=== PATIENT | female | born 1990 | race Caucasian/White ===

== ENCOUNTER 2016-10-11 10:23 | Outpatient (CLI) | payer MEDICAID | END 2016-10-11 10:24 | disposition home or self-care (01) | DX: D64.9 Anemia, unspecified (principal); R59.1 Generalized enlarged lymph nodes ==

== ENCOUNTER 2017-04-10 08:00 | Outpatient (CLI) | payer MEDICAID | END 2017-04-10 23:59 | disposition home or self-care (01) | LOC: LAB.R 08:00 | PROVIDERS: ATTEND Registered Nurse | DX: Z11.3 Encounter for screening for infections with a predominantly sexual mode of transmission (principal) | CPT/HCPCS: 87491; 87591 ==

== ENCOUNTER 2017-08-11 16:08 | Outpatient (CLI) | payer MEDICAID ==
[2017-08-11 17:02] LABS: HGB - HEMOGLOBIN 10.4 g/dL (12.0-16.0); MEAN CORPUSCULAR HEMOGLOBIN 21.2 pg (27.0-31.0); MEAN CORPUSCULAR HGB CONC 31.4 g/dL (32.0-36.0); MEAN CORPUSCULAR VOLUME 67.4 fL (81.0-99.0); MEAN PLATELET VOLUME 9.6 fL (7.9-10.8); RED BLOOD COUNT 4.91 10^6/uL (4.20-5.40); RED CELL DISTRIBUTION WIDTH 16.1 % (12.0-15.0); WHITE BLOOD COUNT 6.7 x10^3/uL (4.8-10.8)
== END 2017-08-11 16:09 | disposition home or self-care (01) ==
LOC: LAB 16:08
PROVIDERS: ATTEND Nurse Practitioner Obstetrics & Gynecology
DX: L02.91 Cutaneous abscess, unspecified (principal)
CPT/HCPCS: 36415

== ENCOUNTER 2017-08-18 14:53 | Outpatient (CLI) | payer MEDICAID ==
--- NOTE | 2017-08-18 16:43 | Ultrasound Report ---
ULTRASOUND OF NECK SOFT TISSUES: 08/18/2017 CLINICAL INDICATION: Followup enlarged left lymph node. TECHNIQUE: Real-time scanning was performed with auto claim representative static images obtained. FINDINGS: Ultrasound of the palpable abnormality identified by the patient was performed. The left jugulodigastric lymph node is again seen, now measuring 2.1 x 1.2 x 0.6 cm. No sonographically suspicious findings are identified in the lymph node. The thyroid demonstrates diffuse heterogeneity of echotexture. The right lobe measures 5.5 x 1.7 x 1.5 cm, and the left lobe measures 5.1 x 1.5 x 1.4 cm. The isthmus measures 6 mm. IMPRESSION: 1. NO SIGNIFICANT INTERVAL CHANGE IN PREVIOUSLY NOTED LEFT JUGULODIGASTRIC LYMPH NODE. 2. HETEROGENEOUS THYROID. CORRELATION WITH THYROID FUNCTION STUDIES IS RECOMMENDED. TD: 08/18/2017 16:42
== END 2017-08-18 14:54 | disposition home or self-care (01) ==
LOC: DI 14:53
PROVIDERS: ATTEND Nurse Practitioner Family
DX: R59.9 Enlarged lymph nodes, unspecified (principal)
CPT/HCPCS: 76536

== ENCOUNTER 2019-03-09 14:49 | Outpatient (CLI) | payer MEDICAID ==
--- NOTE | 2019-03-09 16:23 | Ultrasound Report ---
Reason: THYROID NODULES Procedure Date: 03/09/2019 Accession Number: [id number] / [id number] Procedure: US - Head or Neck Soft Tissue CPT Code: FULL RESULT: EXAM: THYROID ULTRASOUND EXAM DATE: 03/09/2019 03:59 PM. CLINICAL HISTORY: Thyroid nodules. COMPARISON: HEAD OR NECK SOFT TISSUE 08/18/2017 2:57 PM HEAD OR NECK SOFT TISSUE 08/08/2015 3:10 PM. TECHNIQUE: Real time sonographic imaging of the thyroid was performed by the reference services head. [employer] fuels sales representative static images were saved for review. FINDINGS: THYROID GLAND: Right Lobe: 5.5 x 1.4 x 1.6 cm, volume 6.4 cc. Diffusely heterogeneous echotexture, multinodular appearance without single dominant nodule. Right Lobe Nodules: No dominant nodule. Left Lobe: 4.9 x 1.2 x 1.3 cm, volume 3.9 cc. Diffusely heterogeneous echotexture, multinodular appearance without single dominant nodule. Left Lobe Nodules: No dominant nodule. Isthmus: 0.5 cm AP. Isthmic Nodules: None. LYMPH NODES: No definite adenopathy demonstrated in the central or lateral compartment. OTHER: Area in the left upper neck indicated as palpable by the patient reveals a 2.0 x 0.9 cm ovoid hypoechoic structure with central vascularity on limited color Doppler, possibly morphologically abnormal lymph node. This finding is also identified on the 2018 study and has not enlarged. IMPRESSION: Multinodular goiter with questionable adenopathy in the left level 2 cervical chain as described above. The finding is essentially unchanged compared to 2018. Management options include continued surveillance imaging or further characterization with CT of the neck with contrast to determine whether tissue sampling is warranted. Management recommendations are based on 2015 [employer] Management Guidelines for Adult Patients with Thyroid Nodules and Differentiated Thyroid Cancer. RADIA
== END 2019-03-09 14:50 | disposition home or self-care (01) ==
LOC: DI 14:49
PROVIDERS: ATTEND Family Medicine
DX: E04.2 Nontoxic multinodular goiter (principal)
CPT/HCPCS: 76536

== ENCOUNTER 2019-04-12 23:25 | Outpatient (CLI) | payer MEDICAID | END 2019-04-12 23:26 | disposition EMS.NT | LOC: EMS 23:25 | PROVIDERS: ATTEND Surgery | DX: R09.89 Other specified symptoms and signs involving the circulatory and respiratory systems (principal); R25.2 Cramp and spasm ==

== ENCOUNTER 2020-01-05 13:41 | Outpatient (CLI) | payer MEDICAID ==
[2020-01-05 20:49] LABS: HCG,QUALITATIVE BLOOD NEGATIVE
== END 2020-01-05 13:42 | disposition home or self-care (01) ==
LOC: LAB.S 13:41
PROVIDERS: ATTEND Family Medicine
DX: O46.91 Antepartum hemorrhage, unspecified, first trimester (principal)
CPT/HCPCS: 36415; 84703

== ENCOUNTER 2020-06-13 07:00 | Outpatient (CLI) | payer MEDICAID ==
[2020-06-13 10:18] LABS: MUDS CUTOFF CONCENTRATIONS CUTOFF CONC BELOW:
[2020-06-13 10:55] LABS: BILIRUBIN,URINE NEGATIVE (NEGATIVE); CLARITY,URINE CLEAR (CLEAR); GLUCOSE, URINE (UA) NEGATIVE (NEGATIVE); KETONES,URINE (UA) NEGATIVE (NEGATIVE); LEUKOCYTE ESTERASE, URINE NEGATIVE (NEGATIVE); NITRITE,URINE NEGATIVE (NEGATIVE); OCCULT BLOOD,URINE NEGATIVE (NEGATIVE); PROTEIN,URINE NEGATIVE (NEGATIVE); UROBILINOGEN,URINE 0.2 (NORMAL) E.U./dL (NORMAL)
[2020-06-13 11:11] LABS: AMPHETAMINE SCREEN,URINE NEGATIVE (NEGATIVE); BENZODIAZEPINES SCREEN, URINE NEGATIVE (NEGATIVE); COCAINE SCREEN URINE NEGATIVE (NEGATIVE); METHADONE SCREEN, URINE NEGATIVE (NEGATIVE); METHAMPHETAMINES SCREEN, URINE NEGATIVE (NEGATIVE); OPIATE SCREEN, URINE NEGATIVE (NEGATIVE); OXYCODONE SCREEN, URINE NEGATIVE (NEGATIVE); PROPOXYPHENE SCREEN, URINE NEGATIVE (NEGATIVE); TRICYCLIC ANTIDEPRESSANT,URINE NEGATIVE (NEGATIVE)
[2020-06-13 11:14] LABS: BACTERIA,URINE Few /HPF (None Seen); RBC,URINE 0-5 /HPF (0-5); SQUAMOUS EPITHELIAL CELL,UR FEW Squamous (<= Few)
== END 2020-06-13 23:59 | disposition home or self-care (01) ==
LOC: LAB.R 07:00
PROVIDERS: ATTEND Obstetrics & Gynecology
DX: Z34.90 Encounter for supervision of normal pregnancy, unspecified, unspecified trimester (principal)
CPT/HCPCS: 80306; 81001; 87086

== ENCOUNTER 2020-06-21 13:47 | Outpatient (CLI) | payer MEDICAID ==
--- NOTE | 2020-06-21 16:39 | Ultrasound Report ---
PROCEDURE: OB First Trimester INDICATIONS: SUPERVISION OF NL OUTSIDE/PRIOR DATING DATA: Last menstrual period (LMP): Not available. LMP-based estimated date of delivery (KYLER): Not available. First dating scan (date and location): This study. Estimated date of delivery (KYLER) from first dating scan: 01/28/2021. TECHNIQUE: Real-time scanning was performed of the fetus and maternal pelvic organs, with image documentation. COMPARISON: Prior 04/17/2017 pelvic ultrasound. FINDINGS: George-rump length 1.9 cm correlates with a gestational age estimate of 8 weeks 3 days, +/- 5 days. heart rate 1 71 bpm is observed. The patient has a reported endometrial septation, and the sonographic assessment shows a small adjacent subchorionic hemorrhage at the gestational sac mar gin measuring 4.0 x 1.4 x 4.0 cm. Also within the right endometrial space what appears to be a small additional potential hemorrhage measuring 2.4 x 2.8 x 4.4 cm. Quality of visualization is somewhat li mited-patient declined transvaginal study. Embryo: Viable gestation. Measurement variability in dating: +/- 4 weeks by LMP, +/- 7 days by mean sac diameter (use before 6 weeks gestation if crown-rump length not able to be measured), +/- 5 days by crown-rump length (6-12 weeks gestation). Maternal organs: Ovaries appear normal. Limited images through the kidneys demonstrate no hydroneph rosis. 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 The current examination sh ows the gestation is within the left margin of the endometrial space and there appears to be a very g estational hemorrhage at that area, but also a second separate independent smaller perigestational he morrhage is seen on the right. The exact anatomy is not clear-the patient declined transvaginal scann ing. This gestation likely represents a relatively high risk and highway research engineer specialist co nsultation appears warranted. Reviewed by: Lalo Hardwick MD on 06/21/2020 4:38 PM PST Approved by: Lalo Hardwick MD on 06/21/2020 4:38 PM PST Station ID: [id number]
== END 2020-06-21 13:48 | disposition home or self-care (01) ==
LOC: DI 13:47
PROVIDERS: ATTEND Obstetrics & Gynecology
DX: Z34.91 Encounter for supervision of normal pregnancy, unspecified, first trimester (principal)

== ENCOUNTER 2020-07-05 08:00 | Outpatient (CLI) | payer MEDICAID ==
[2020-07-06 20:09] LABS: CANDIDA GROUP DNA NEGATIVE (NEGATIVE); CANDIDA KRUSEI DNA NEGATIVE (NEGATIVE); TRICHOMONAS VAGINALIS DNA NEGATIVE (NEGATIVE)
== END 2020-07-05 23:59 | disposition home or self-care (01) ==
LOC: LAB.R 08:00
PROVIDERS: ATTEND Nurse Practitioner Obstetrics & Gynecology
DX: N89.8 Other specified noninflammatory disorders of vagina (principal)
CPT/HCPCS: 87661; 87801

== ENCOUNTER 2020-07-11 08:00 | Outpatient (CLI) | payer MEDICAID ==
[2020-07-11 21:54] LABS: TRICHOMONAS VAGINALIS DNA NEGATIVE (NEGATIVE)
== END 2020-07-11 23:59 | disposition home or self-care (01) ==
LOC: LAB.R 08:00
PROVIDERS: ATTEND Obstetrics & Gynecology
DX: Z34.90 Encounter for supervision of normal pregnancy, unspecified, unspecified trimester (principal)
CPT/HCPCS: 87491; 87591; 87661

== ENCOUNTER 2020-07-11 11:52 | Outpatient (CLI) | payer MEDICAID ==
[2020-07-11 12:25] LABS: BASOPHILS % (AUTO) 0.5 %; EOSINOPHILS # (AUTO) 0.1 10^3/uL (0.0-0.7); EOSINOPHILS % (AUTO) 0.8 %; LYMPHOCYTES # (AUTO) 1.6 10^3/uL (1.5-3.5); LYMPHOCYTES % (AUTO) 19.6 %; MEAN CORPUSCULAR HEMOGLOBIN 22.2 pg (27.0-31.0); MEAN CORPUSCULAR HGB CONC 32.1 g/dL (32.0-36.0); MEAN CORPUSCULAR VOLUME 69.2 fL (81.0-99.0); MONOCYTES # (AUTO) 0.4 10^3/uL (0.0-1.0); MONOCYTES % (AUTO) 5.1 %; NEUTROPHILS # (AUTO) 6.1 10^3/uL (1.5-6.6); NEUTROPHILS % (AUTO) 73.6 %; PLT - PLATELET COUNT 259 10^3/uL (130-450); RED BLOOD COUNT 4.51 10^6/uL (4.20-5.40); RED CELL DISTRIBUTION WIDTH 15.9 % (12.0-15.0); WHITE BLOOD COUNT 8.3 x10^3/uL (4.8-10.8)
[2020-07-12 12:22] LABS: HEPATITIS C ANTIBODY NON-REACTIVE (NON-REACTIVE)
[2020-07-12 12:23] LABS: HEPATITIS B SURFACE ANTIGEN NON-REACTIVE (NON-REACTIVE)
[2020-07-12 13:42] LABS: HIV AG/AB 4TH GEN NON-REACTIVE (NON-REACTIVE)
== END 2020-07-11 11:53 | disposition home or self-care (01) ==
LOC: LAB 11:52
PROVIDERS: ATTEND Obstetrics & Gynecology
DX: Z36.89 Encounter for other specified antenatal screening (principal)
CPT/HCPCS: 36415; 81599; 85025; 86592; 86762; 86787; 86803; 86850; 86900; 86901; 87340; 87389

== ENCOUNTER 2020-09-12 12:19 | Outpatient (CLI) | payer MEDICAID ==
--- NOTE | 2020-09-12 17:57 | Ultrasound Report ---
PROCEDURE: OB Detailed Eval INDICATIONS: ANTENATEL SCAN OUTSIDE/PRIOR DATING DATA: First dating scan (date and location): 06/21/2020. Estimated date of delivery (KYLER) from first dating scan: 01/28/2021. TECHNIQUE: Real-time scanning was performed of the fetus, with image documentation and biometric measurements. Endovaginal scanning: Not performed COMPARISON: 06/21/2020 FINDINGS: General: A single living intrauterine gestation is present. Presentation: Transverse, head to the right Placenta: Placental position is anterior, without previa. Amniotic fluid index: 14.6 cm, 54th percentile for gestational age. Largest vertical pocket measur ed 4.4 cm. heart rate: 139 beats per minute. Maternal cervical canal: 5.0 cm long; normal length is 2.5 cm or more. biometrics: Biparietal diameter: 4.8 cm, correlating with 20 weeks and 4 days Head circumference: 18.0 cm, correlating with 20 weeks and 3 days Abdominal circumference: 14.5 cm, correlating with 19 weeks and 6 days Femur length: 3.2 cm, correlating with 19 weeks and 6 days Estimated gestational age from initial scan: 20 weeks and 2 days. Composite gestational age from present scan: 20 weeks and 1 day Estimated weight and percentile: 321 [address] which [address] the fetus within the 26th percentile for g estational age Measurement variability in biometric dating: +/- 10 days from 12-20 weeks gestation, +/- 2 weeks from 20-30 weeks gestation, +/- 3 weeks at 30 weeks gestation or later. Anatomic survey: Slightly limited secondary to transverse lie. Neuro: Ventricles are normal at less than 10 mm. Cisterna magna is normal at 3-11 mm. Cerebellum i s normal in size and morphology. Nuchal skin fold: Normal at less than 6 mm between 14 and 20 weeks gestational age. Face: Nose and lips, facial profile are normal. Spine: No evidence for spina bifida. Slightly limited evaluation of the spine on the sagittal plane. Heart: 4-chambered heart is present, with normal ventricular outflow tracts. Diaphragm: Diaphragm is intact. Stomach: Left-sided stomach is present. Kidneys: No hydronephrosis. Normal is less than 5 mm in 2nd trimester, less than 7 mm in 3rd trimester. Cord: 3 vessel cord has orthotopic insertion. Nuchal cord visualized throughout the study. No uteri ne septation seen. Bladder: Normal in size. Extremities: All 4 extremities are visualized. IMPRESSION: 1. Single living intrauterine gestation with estimated sonographic gestational age of approximately 2 0 weeks and 1 day. Expected interval growth has occurred. 2. Estimated weight of approximately 321 [address] which [address] the fetus within the 26th percentile fo r gestational age. 3. Incidental note of nuchal cord. 4. Mildly limited evaluation of the spine in the sagittal plane. No gross abnormality seen. Con maintenance mechanic elevators repeat imaging. Reviewed by: Mj Barker MD on 09/12/2020 5:56 PM PDT Approved by: Mj Barker MD on 09/12/2020 5:56 PM PDT Station ID: [id number]
== END 2020-09-12 12:20 | disposition home or self-care (01) ==
LOC: DI 12:19
PROVIDERS: ATTEND Obstetrics & Gynecology
DX: Z34.90 Encounter for supervision of normal pregnancy, unspecified, unspecified trimester (principal)

== ENCOUNTER 2020-10-04 14:15 | Outpatient (CLI) | payer MEDICAID ==
--- NOTE | 2020-10-04 16:43 | Ultrasound Report ---
PROCEDURE: OB F/U or Repeat INDICATIONS: SCREENING OUTSIDE/PRIOR DATING DATA: Last menstrual period (LMP): Unknown. LMP-based estimated date of delivery (KYLER): Unknown. First dating scan (date and location): 06/21/2020. Estimated date of delivery (KYLER) from first dating scan: 01/28/2021. TECHNIQUE: Real-time scanning was performed of the fetus, with image documentation and biometric measurements. Endovaginal scanning: Not performed COMPARISON: None. FINDINGS: General: A single living intrauterine gestation is present. Presentation: Vertex Placenta: Placental position is anterior, without previa. Amniotic fluid index: 14.3 cm, 45th percentile for gestational age. Largest pocket measures 4.3 cm. heart rate: 140 beats per minute. Maternal cervical canal: 3.7 cm long; normal length is 2.5 cm or more. Other: Spine is within normal limits IMPRESSION: Single living intrauterine fetus in vertex presentation. Normal appearance of the spine. Normal SAMI Reviewed by: Sven Cox MD on 10/04/2020 4:42 PM PDT Approved by: Sven Cox MD on 10/04/2020 4:42 PM PDT Station ID: [id number]
== END 2020-10-04 14:16 | disposition home or self-care (01) ==
LOC: DI 14:15
PROVIDERS: ATTEND Nurse Practitioner Obstetrics & Gynecology
DX: Z36.89 Encounter for other specified antenatal screening (principal)

== ENCOUNTER 2020-11-09 11:36 | Outpatient (CLI) | payer MEDICAID ==
[2020-11-09 12:45] LABS: HCT - HEMATOCRIT 28.2 % (37.0-47.0); MEAN CORPUSCULAR HEMOGLOBIN 22.8 pg (27.0-31.0); MEAN CORPUSCULAR HGB CONC 31.9 g/dL (32.0-36.0); MEAN CORPUSCULAR VOLUME 71.4 fL (81.0-99.0); MEAN PLATELET VOLUME 9.7 fL (7.9-10.8); RED BLOOD COUNT 3.95 10^6/uL (4.20-5.40); RED CELL DISTRIBUTION WIDTH 16.3 % (12.0-15.0); WHITE BLOOD COUNT 9.4 x10^3/uL (4.8-10.8)
[2020-11-09 13:09] LABS: % IRON SATURATION 26 % (20-50); GLUCOSE,1H PP 50GM DOSE 124; IRON 119 ug/dL (28-170); TOTAL IRON BINDING CAPACITY 462 ug/dL (250-450); TRANSFERRIN 330 mg/dL (192-382)
== END 2020-11-09 11:37 | disposition home or self-care (01) ==
LOC: LAB 11:36
PROVIDERS: ATTEND Obstetrics & Gynecology
DX: O99.019 Anemia complicating pregnancy, unspecified trimester (principal); D56.3 Thalassemia minor; D50.9 Iron deficiency anemia, unspecified
CPT/HCPCS: 36415; 82728; 82950; 83540; 84466; 85027

== ENCOUNTER 2022-10-17 08:00 | Outpatient (CLI) | payer MEDICAID ==
[2022-10-17 15:15] LABS: BILIRUBIN,URINE NEGATIVE (NEGATIVE); GLUCOSE, URINE (UA) NEGATIVE (NEGATIVE); KETONES,URINE (UA) NEGATIVE (NEGATIVE); LEUKOCYTE ESTERASE, URINE NEGATIVE (NEGATIVE); NITRITE,URINE NEGATIVE (NEGATIVE); OCCULT BLOOD,URINE NEGATIVE (NEGATIVE); PROTEIN,URINE NEGATIVE (NEGATIVE); UROBILINOGEN,URINE 0.2 (NORMAL) E.U./dL (NORMAL)
[2022-10-17 15:19] LABS: CLARITY,URINE CLEAR (CLEAR)
[2022-10-17 16:07] LABS: BACTERIA,URINE Few /HPF (None Seen); RBC,URINE 0-5 /HPF (0-5); SQUAMOUS EPITHELIAL CELL,UR RARE Squamous (<= Few); WBC,URINE 0-3 /HPF (0-5)
== END 2022-10-17 23:59 | disposition home or self-care (01) ==
LOC: LAB.WC 08:00
PROVIDERS: ATTEND Nurse Practitioner
DX: Z34.90 Encounter for supervision of normal pregnancy, unspecified, unspecified trimester (principal); Z36.89 Encounter for other specified antenatal screening
CPT/HCPCS: 81001; 87086

== ENCOUNTER 2022-11-04 16:35 | Outpatient (CLI) | payer MEDICAID ==
--- NOTE | 2022-11-04 18:03 | Ultrasound Report ---
PROCEDURE: OB First Trimester INDICATIONS: SUPERVISION OF OUTSIDE/PRIOR DATING DATA: Last menstrual period (LMP): 08/24/2022. LMP-based estimated date of delivery (KYLER): 05/31/2023. First dating scan (date and location): Today's exam. Estimated date of delivery (KYLER) from first dating scan: 06/12/2023. The below data below was generated using the ultrasound KYLER of 06/12/2023 TECHNIQUE: Real-time scanning was performed of the fetus and maternal pelvic organs, with image documentation. COMPARISON: None FINDINGS: Single living intrauterine . There is a gestational fluid collection measuring 4 x 1.7 x 2.5 cm. Embryo: Measures 2.0 cm, corresponding to 8 weeks 4 days. Heart rate: 178 bpm. Measurement variability in dating: +/- 4 weeks by LMP, +/- 7 days by mean sac diameter (use before 6 weeks gestation if crown-rump length not able to be measured), +/- 5 days by crown-rump length (6-12 weeks gestation). Maternal organs: Ovaries demonstrate bilateral cysts. IMPRESSION: Single living intrauterine at 8 weeks 4 days, KYLER of 06/12/2023. Moderate size. Just adnexal fluid collection measuring 4 x 1.7 x 2.5 cm. Borderline tachycardia. Reviewed by: Efren Rubi on 11/04/2022 5:01 PM NATASHA Approved by: Efren Rubi on 11/04/2022 5:01 PM NATASHA Station ID: [id number]
[2022-11-05 02:07] LABS: HCV AB Non Reactive (Non Reactive)
[2022-11-05 05:12] LABS: HIV SCREEN 4TH GENERATION Non Reactive (Non Reactive)
== END 2022-11-04 16:36 | disposition home or self-care (01) ==
LOC: DI 16:35
PROVIDERS: ATTEND Nurse Practitioner
DX: O99.011 Anemia complicating pregnancy, first trimester (principal); Z3A.08 8 weeks gestation of pregnancy; Z36.89 Encounter for other specified antenatal screening
CPT/HCPCS: 36415; 82728; 86787; 86803; 87389

== ENCOUNTER 2022-12-04 08:00 | Outpatient (CLI) | payer MEDICAID ==
[2022-12-04 21:35] LABS: CHLAMYDIA TRACHOMATIS DNA NEGATIVE (NEGATIVE); NEISSERIA GONORRHOEAE DNA NEGATIVE (NEGATIVE); TRICHOMONAS VAGINALIS DNA NEGATIVE (NEGATIVE)
== END 2022-12-04 23:59 | disposition home or self-care (01) ==
LOC: LAB.WC 08:00
PROVIDERS: ATTEND Obstetrics & Gynecology
DX: Z11.3 Encounter for screening for infections with a predominantly sexual mode of transmission (principal)
CPT/HCPCS: 87491; 87591; 87661

== ENCOUNTER 2022-12-06 10:03 | Outpatient (CLI) | payer MEDICAID ==
[2022-12-06 10:23] LABS: BASOPHILS % (AUTO) 0.5 %; EOSINOPHILS # (AUTO) 0.1 10^3/uL (0.0-0.7); EOSINOPHILS % (AUTO) 0.8 %; HCT - HEMATOCRIT 32.3 % (37.0-47.0); HGB - HEMOGLOBIN 10.1 g/dL (12.0-16.0); LYMPHOCYTES # (AUTO) 1.6 10^3/uL (1.5-3.5); LYMPHOCYTES % (AUTO) 20.4 %; MEAN CORPUSCULAR HEMOGLOBIN 21.8 pg (27.0-31.0); MEAN CORPUSCULAR HGB CONC 31.3 g/dL (32.0-36.0); MEAN CORPUSCULAR VOLUME 69.6 fL (81.0-99.0); MONOCYTES # (AUTO) 0.4 10^3/uL (0.0-1.0); NEUTROPHILS # (AUTO) 5.8 10^3/uL (1.5-6.6); NEUTROPHILS % (AUTO) 72.9 %; PLT - PLATELET COUNT 175 10^3/uL (130-450); RED BLOOD COUNT 4.64 10^6/uL (4.20-5.40); RED CELL DISTRIBUTION WIDTH 17.4 % (12.0-15.0)
[2022-12-06 10:24] LABS: SLIDE REVIEW? Indicated
[2022-12-06 10:40] LABS: PLATELET ESTIMATE, MANUAL NORMAL (130-450,000) (NORMAL); PLATELET MORPHOLOGY NORMAL APPEARANCE (NORMAL)
[2022-12-07 02:08] LABS: HBsAG SCREEN Negative (Negative)
[2022-12-07 06:09] LABS: RPR Non Reactive (Non Reactive)
== END 2022-12-06 10:04 | disposition home or self-care (01) ==
LOC: LAB 10:03
PROVIDERS: ATTEND Nurse Practitioner
DX: Z34.90 Encounter for supervision of normal pregnancy, unspecified, unspecified trimester (principal); Z36.89 Encounter for other specified antenatal screening
CPT/HCPCS: 36415; 85025; 86592; 86762; 86850; 86900; 86901; 87340

== ENCOUNTER 2023-01-29 14:28 | Outpatient (CLI) | payer MEDICAID ==
[2023-01-31 21:07] LABS: AFP MOM 0.53 (.); GEST. AGE ON COLLECTION DATE 20.9 weeks (.); GESTAT. AGE METHOD Ultrasound (.); INSULIN DEP DIABETES No (.); MATERNAL AGE AT EDD 34.3 yr (.); MULTIPLE GESTATION No (.); OPEN SPINA BIFIDA RISK 1 IN 10000 (.); RACE Caucasian (.); RESULTS Report (.); TEST RESULTS *Screen Negative* (.); WEIGHT 139 lbs (.)
== END 2023-01-29 14:29 | disposition home or self-care (01) ==
LOC: LAB 14:28
PROVIDERS: ATTEND Obstetrics & Gynecology
DX: O09.91 Supervision of high risk pregnancy, unspecified, first trimester (principal); O34.211 Maternal care for low transverse scar from previous cesarean delivery; O99.011 Anemia complicating pregnancy, first trimester; D64.9 Anemia, unspecified; D56.3 Thalassemia minor
CPT/HCPCS: 36415; 82105; 82728

== ENCOUNTER 2023-04-23 12:22 | Outpatient (CLI) | payer MEDICAID ==
--- NOTE | 2023-04-23 18:54 | Ultrasound Report ---
PROCEDURE: OB F/U or Repeat INDICATIONS: SEPTATE UTERUS OUTSIDE/PRIOR DATING DATA: Last menstrual period (LMP): 08/24/2022. LMP-based estimated date of delivery (KYLER): 05/31/2023. First dating scan (date and location): 11/04/2022. Estimated date of delivery (KYLER) from first dating scan: 06/12/2023. The below data below was generated using the working KYLER of 06/04/2023 TECHNIQUE: Ultrasound of the gravid uterus was performed and recorded. COMPARISON: 01/21/2023 FINDINGS: General: A single live intrauterine gestation is present. Presentation: Breech Placenta: Placental position is anterior without previa. Amniotic fluid index: 13.3 cm, 39 percentile for gestational age. heart rate: 127 beats per minute. Maternal cervical canal: 5.2 cm long; normal length is 2.5 cm or more. biometrics: Biparietal diameter: 8.3 cm, 33 week 2 day, 58 percentile Head circumference: 30.7 cm, 34 week 1 day , 48th percentile Abdominal circumference: 29.4 cm, 33 week 3 day, 66 percentile Femur length: 6.4 cm, 33 week 0 day, 43 percentile Estimated gestational age by working dates: 32 week 6 day Composite gestational age by current ultrasound: 33 week 3 day Estimated weight and percentile: 2179 g, 57th percentile Measurement variability in biometric dating: +/- 10 days from 12-20 weeks gestation, +/- 2 weeks from 20-30 weeks gestation, +/- 3 weeks at 30 weeks gestation or more. Other: Not applicable. IMPRESSION: Single live intrauterine consistent with 33 week 3 day gestation by current ultrasound Reviewed by: River Smith MD on 04/23/2023 5:53 PM AK Approved by: River Smith MD on 04/23/2023 5:53 PM AK Station ID: [id number]
== END 2023-04-23 12:23 | disposition home or self-care (01) ==
LOC: DI 12:22
PROVIDERS: ATTEND Obstetrics & Gynecology
DX: Q51.28 Other and unspecified doubling of uterus (principal); O34.03 Maternal care for unspecified congenital malformation of uterus, third trimester; Z3A.33 33 weeks gestation of pregnancy

== ENCOUNTER 2023-05-26 14:28 | Outpatient (CLI) | payer MEDICAID ==
[2023-05-26 14:54] LABS: HCT - HEMATOCRIT 30.2 % (37.0-47.0); HGB - HEMOGLOBIN 9.4 g/dL (12.0-16.0); MEAN CORPUSCULAR HEMOGLOBIN 22.1 pg (27.0-31.0); MEAN CORPUSCULAR HGB CONC 31.1 g/dL (32.0-36.0); MEAN CORPUSCULAR VOLUME 70.9 fL (81.0-99.0); PLT - PLATELET COUNT 163 10^3/uL (130-450); RED BLOOD COUNT 4.26 10^6/uL (4.20-5.40); RED CELL DISTRIBUTION WIDTH 16.4 % (12.0-15.0); WHITE BLOOD COUNT 10.4 x10^3/uL (4.8-10.8)
[2023-05-26 17:33] LABS: ESTIMATED AVERAGE GLUCOSE 88 mg/dL (70-100); HEMOGLOBIN A1c% 4.7 % (4.27-6.07)
== END 2023-05-26 14:29 | disposition home or self-care (01) ==
LOC: LAB 14:28
PROVIDERS: ATTEND Registered Nurse Emergency
DX: O09.893 Supervision of other high risk pregnancies, third trimester (principal); Z13.1 Encounter for screening for diabetes mellitus
CPT/HCPCS: 36415; 83036; 85027; 86780

== ENCOUNTER 2024-01-30 10:41 | Outpatient (CLI) | payer MEDICAID ==
[2024-01-30 10:52] LABS: BASOPHILS % (AUTO) 0.4 %; EOSINOPHILS # (AUTO) 0.3 10^3/uL (0.0-0.7); EOSINOPHILS % (AUTO) 3.5 %; HCT - HEMATOCRIT 28.1 % (37.0-47.0); HGB - HEMOGLOBIN 8.6 g/dL (12.0-16.0); LYMPHOCYTES # (AUTO) 1.2 10^3/uL (1.5-3.5); LYMPHOCYTES % (AUTO) 15.3 %; MEAN CORPUSCULAR HEMOGLOBIN 19.8 pg (27.0-31.0); MEAN CORPUSCULAR HGB CONC 30.6 g/dL (32.0-36.0); MEAN CORPUSCULAR VOLUME 64.6 fL (81.0-99.0); MEAN PLATELET VOLUME 8.4 fL (7.9-10.8); MONOCYTES # (AUTO) 0.4 10^3/uL (0.0-1.0); MONOCYTES % (AUTO) 4.9 %; NEUTROPHILS # (AUTO) 5.9 10^3/uL (1.5-6.6); NEUTROPHILS % (AUTO) 75.4 %; PLT - PLATELET COUNT 281 10^3/uL (130-450); RED BLOOD COUNT 4.35 10^6/uL (4.20-5.40); WHITE BLOOD COUNT 7.8 x10^3/uL (4.8-10.8)
== END 2024-01-30 10:42 | disposition home or self-care (01) ==
LOC: LAB 10:41
PROVIDERS: ATTEND Nurse Practitioner
DX: D64.9 Anemia, unspecified (principal); R59.1 Generalized enlarged lymph nodes
CPT/HCPCS: 36415; 85025; 86308

== ENCOUNTER 2024-02-03 20:55 | Outpatient (CLI) | payer MEDICAID ==
--- NOTE | 2024-02-04 09:34 | Ultrasound Report ---
PROCEDURE: Soft Tissue Head or Neck INDICATIONS: LYMPHADENOPATHY TECHNIQUE: Real-time scanning was performed of the neck, with image documentation. COMPARISON: None FINDINGS: Borderline enlarged bilateral cervical chain lymph nodes, left greater than right. Largest on the lef t measures 2.7 x 1.1 cm. Largest on the right measures 1.7 x 0.7 cm Heterogeneous thyroid echogenicity. IMPRESSION: Enlarged bilateral cervical chain lymph nodes. These could be reactive or indicate a lymphoproliferat israel disorder. Consider short-term follow-up (2-3 months) over tissue sampling. Heterogeneous thyroid echogenicity, most consistent with thyroiditis. Reviewed by: Efren Rubi MD on 02/04/2024 9:32 AM PDT Approved by: Efren Rubi MD on 02/04/2024 9:32 AM PDT Station ID: [id number]
== END 2024-02-03 20:56 | disposition home or self-care (01) ==
LOC: DI 20:55
PROVIDERS: ATTEND Nurse Practitioner
DX: R59.1 Generalized enlarged lymph nodes (principal)

== ENCOUNTER 2024-02-04 16:09 | Outpatient (CLI) | payer MEDICAID ==
[2024-02-04 16:42] LABS: BILIRUBIN,URINE SMALL (NEGATIVE); GLUCOSE, URINE (UA) NEGATIVE (NEGATIVE); KETONES,URINE (UA) 40 mg/dL (NEGATIVE); LEUKOCYTE ESTERASE, URINE NEGATIVE (NEGATIVE); NITRITE,URINE NEGATIVE (NEGATIVE); OCCULT BLOOD,URINE NEGATIVE (NEGATIVE); PH,URINE 6.5 PH (5.0-7.5); PROTEIN,URINE 30 mg/dL (NEGATIVE); UROBILINOGEN,URINE 2 E.U./dL (NORMAL)
[2024-02-04 16:46] LABS: CLARITY,URINE CLOUDY (CLEAR)
[2024-02-04 17:17] LABS: BACTERIA,URINE Moderate /HPF (None Seen); RBC,URINE 0-5 /HPF (0-5); SQUAMOUS EPITHELIAL CELL,UR MANY Squamous (<= Few); WBC,URINE 0-3 /HPF (0-5)
== END 2024-02-04 16:10 | disposition home or self-care (01) ==
LOC: LAB 16:09
PROVIDERS: ATTEND Nurse Practitioner
DX: D64.9 Anemia, unspecified (principal)
CPT/HCPCS: 81001; 81599; 82274

== ENCOUNTER 2024-02-05 22:11 | Outpatient (CLI) | payer MEDICAID | END 2024-02-05 22:12 | disposition EMS.NT | LOC: EMS 22:11 | DX: R00.0 Tachycardia, unspecified (principal); R50.9 Fever, unspecified; F41.9 Anxiety disorder, unspecified ==

== ENCOUNTER 2024-02-07 08:00 | Outpatient (CLI) | payer MEDICAID | END 2024-02-07 23:59 | disposition home or self-care (01) | LOC: LAB.N 08:00 | PROVIDERS: ATTEND Registered Nurse | DX: R07.0 Pain in throat (principal) | CPT/HCPCS: 87070 ==

== ENCOUNTER 2024-02-08 11:50 | Outpatient (CLI) | payer MEDICAID ==
[2024-02-08 13:01] LABS: CRP - C-REACTIVE PROTEIN 11.6 mg/dL (<0.5)
[2024-02-08 13:22] LABS: RHEUMATOID FACTOR NEGATIVE (Negative)
[2024-02-08 14:06] LABS: FERRITIN > 7500.0 ng/mL (11.0-306.8)
[2024-02-09 13:10] LABS: EBV AB VCA IGM <36.0 U/mL (0.0-35.9); EBV NUCLEAR ANTIGEN AB IGG 34.9 U/mL (0.0-17.9); VITAMIN D 25-HYDROXY 22.9 ng/mL (30.0-100.0)
== END 2024-02-08 11:51 | disposition home or self-care (01) ==
LOC: LAB 11:50
PROVIDERS: ATTEND Nurse Practitioner
DX: R50.9 Fever, unspecified (principal); F43.9 Reaction to severe stress, unspecified; F41.9 Anxiety disorder, unspecified; R07.0 Pain in throat; L30.9 Dermatitis, unspecified; L27.0 Generalized skin eruption due to drugs and medicaments taken internally; T36.0X5A Adverse effect of penicillins, initial encounter; R59.1 Generalized enlarged lymph nodes; M79.10 Myalgia, unspecified site; M25.50 Pain in unspecified joint; R53.83 Other fatigue
CPT/HCPCS: 36415; 82306; 82607; 82728; 82746; 85651; 86140; 86430; 86618; 86664; 86665

== ENCOUNTER 2024-02-13 19:22 | Outpatient (CLI) | payer MEDICAID ==
--- NOTE | 2024-02-16 12:40 | Ultrasound Report ---
PROCEDURE: Pelvic Complete INDICATIONS: ANEMIA TECHNIQUE: Real-time transabdominal scanning was performed of the pelvic organs, with image documentation. COMPARISON: Pelvic ultrasound 04/17/2017 FINDINGS: Uterus: Uterus is anteverted and normal in size at 8.1 x 2.5 x 5.5 cm. The uterus is bicornuate The myometrium is homogeneous. The endometrium in the right horn measures 5 mm and the left horn measur es 7 mm in combined thickness. Ovaries: The right ovary measures 2.9 x 2.2 x 2.8 cm, with a calculated ovarian volume of 9 cc. The left ovary measures 0.5 x 1.8 x 3.0 cm, with a calculated ovarian volume of 6.9 cc. The ovaries hav e a normal sonographic appearance. Less than 12 follicles can be seen in each ovary. No adnexal mas ses are seen. No cystic lesions measuring greater than 3 cm. Other: No free pelvic fluid. IMPRESSION: Bicornuate uterus. Reviewed by: Sherley Chen MD, PhD on 02/16/2024 12:39 PM PDT Approved by: Sherley Chen MD, PhD on 02/16/2024 12:39 PM PDT Station ID: [id number]
== END 2024-02-13 19:23 | disposition home or self-care (01) ==
LOC: DI 19:22
PROVIDERS: ATTEND Nurse Practitioner
DX: D64.9 Anemia, unspecified (principal); Q51.3 Bicornate uterus

== ENCOUNTER 2024-02-17 08:00 | Outpatient (CLI) | payer MEDICAID ==
--- NOTE | 2024-02-17 16:34 | XRAY Report ---
PROCEDURE: Shoulder 2+V LT INDICATIONS: ARTHRALGIA TECHNIQUE: 3 views of the shoulder were acquired. COMPARISON: None. FINDINGS: Bones: No acute displaced fracture or dislocation. Soft tissues: No suspicious calcifications IMPRESSION: No acute radiographic abnormality. If there is high concern for further derangement, consider MRI donna luation. Reviewed by: Con Porter MD on 02/17/2024 4:33 PM PDT Approved by: Con Porter MD on 02/17/2024 4:33 PM PDT Station ID: [id number]
== END 2024-02-17 23:59 | disposition home or self-care (01) ==
LOC: DI.S 08:00
PROVIDERS: ATTEND Registered Nurse
DX: M25.512 Pain in left shoulder (principal)

== ENCOUNTER 2024-02-18 21:46 | Outpatient (CLI) | payer MEDICAID ==
--- NOTE | 2024-02-23 20:44 | Ultrasound Report ---
PROCEDURE: Duplex Ext Veins Right INDICATIONS: R FOREARM SWELLING TECHNIQUE: Real-time imaging, as well as color and pulse Doppler interrogation, were performed of the right uppe r extremity deep veins from the subclavian vein to the antecubital fossa. COMPARISON: None. FINDINGS: The right internal jugular, axillary and brachial veins are normally compressible, and niki e of intraluminal thrombus. Color and pulse Doppler demonstrate normal phasic intraluminal flow invo lving the right internal jugular, subclavian, axillary and brachial veins. There is normal augmentat ion response to distal compression maneuver. The basilic and cephalic veins demonstrate normal compressibility, color and pulse Doppler with celena l phasicity and free of intraluminal thrombus. Incidental note is made of a trace amount of fluid within the right shoulder joint space. IMPRESSION: No evidence of deep venous thrombosis involving the visualized right upper extremity. Reviewed by: Russ Vasquez MD on 02/23/2024 8:27 AM PDT Approved by: Russ Vasquez MD on 02/23/2024 8:27 AM PDT Station ID: [id number]
== END 2024-02-18 21:47 | disposition home or self-care (01) ==
LOC: DI 21:46
PROVIDERS: ATTEND Registered Nurse
DX: R22.31 Localized swelling, mass and lump, right upper limb (principal); R50.9 Fever, unspecified

== ENCOUNTER 2024-02-24 11:13 | Emergency (ER) | payer MEDICAID ==
[2024-02-24 11:31] VITALS: O2SAT 99
--- NOTE | 2024-02-24 12:31 | ED Physician Documentation ---
History of Present Illness - Stated complaint Stated Complaint: BULDGE ON BROW - Chief complaint Chief Complaint: General - History obtained from History obtained from: Patient - Additonal information Additional information: She had a cyst removed from her forehead at [facility] on February 12 and now has some purulent drainage from it. Of note, she has a fever, asked her when she developed the fever and she says it started mid December and has been intermittent since. She has a family member who is a doctor who thinks she has Lyme disease despite being reportedly seronegative for same. PD PAST MEDICAL HISTORY - Past Medical History Psych: Anxiety - Past Surgical History Past Surgical History: Yes - Present Medications Home Medications: Ambulatory Orders Medication Instructions Recorded Confirmed Doxycycline [Vibramycin] 100 mg PO BID #20 tablet 02/24/24 - Allergies Allergies/Adverse Reactions: Allergies Allergy/AdvReac Type Severity Reaction Status Date / Time amoxicillin Allergy Unknown Verified 02/24/24 11:22 - Social History Does the pt smoke?: Yes Smoking Status: Current every day smoker Does the pt drink ETOH?: Yes Does the pt have substance abuse?: Yes - POLST Patient has POLST: No PD ED PE NORMAL - Vitals Vital signs reviewed: Yes - General General: Alert and oriented X 3, No acute distress - HEENT HEENT: Other (There is a small sebaceous cyst between the eyebrows that does have some purulent drainage but really no surrounding cellulitis.) - Neck Neck: Supple, no meningeal sign, No bony TTP - Derm Derm: No rash - Neuro Neuro: Alert and oriented X 3, Normal speech Results - Vitals Vitals: Vital Signs - 24 hr 02/24/24 11:23 Temperature 38.3 C H Heart Rate 129 H Respiratory 18 Rate Blood Pressure 119/70 O2 Saturation 99 Oxygen O2 Source Room air Procedures - Abscess I&D (location) forehead Preparation: Lidocaine 1%, With epi Incision: Incised with scalpel, Purulent drainage, Loculations broken, Culture obtained Other: Pt tolerated well, Dressing applied PD Medical Decision Making - ED course ED course: She has a tiny infected cyst on the forehead, was incised and drained. She is febrile, but suspect that is not the source of her fever, she has had ongoing fevers since before the cyst was even an issue. Given the length of time it sounds like an autoimmune disease and looking back in the chart it does look like her primary care nurse practitioner has started the process of working her up for rheumatologic disease. Patient thinks she has Lyme despite negative serologic testing for that so would seem reasonable to use doxycycline for the presumptive treatment of her cyst abscess. Departure - Departure Disposition: 01 Home, Self Care Clinical Impression: Sebaceous cyst Condition: Good Record reviewed to determine appropriate education?: Yes Instructions: ED Cyst Sebaceous Infec IandD Prescriptions: Doxycycline [Vibramycin] 100 mg PO BID #20 tablet Comments: I sent your prescription electronically to the [facility] in [place]. Your ultrasound from yesterday was negative. Given the ongoing fevers, we are treating you with doxycycline for the infection but also per your request to treat for seronegative Lyme disease. Could also be an autoimmune issue and follow-up with your primary care physician for further evaluation and treatment of that. We are performing a wound culture, the results should be done in 48-72 hours. If antibiotic change is necessary we will call you. Return if worse in the meantime, especially if you develop increased pain, cannot keep down the medication. Otherwise follow-up with your physician in approximately 2-3 days. Forms: PCP List
[2024-02-24 13:09] VITALS: BP 115/68
== END 2024-02-24 12:53 | disposition home or self-care (01) ==
LOC: ED 11:13
DX: L72.3 Sebaceous cyst (principal); R50.9 Fever, unspecified; F17.200 Nicotine dependence, unspecified, uncomplicated
CPT/HCPCS: 10060; 87070; 87077; 87205

== ENCOUNTER 2024-03-11 16:04 | Outpatient (CLI) | payer MEDICAID ==
[2024-03-11 16:21] LABS: BASOPHILS % (AUTO) 0.3 %; EOSINOPHILS # (AUTO) 0.1 10^3/uL (0.0-0.7); EOSINOPHILS % (AUTO) 1.4 %; HCT - HEMATOCRIT 24.8 % (37.0-47.0); HGB - HEMOGLOBIN 7.5 g/dL (12.0-16.0); LYMPHOCYTES # (AUTO) 1.1 10^3/uL (1.5-3.5); LYMPHOCYTES % (AUTO) 11.5 %; MEAN CORPUSCULAR HEMOGLOBIN 19.2 pg (27.0-31.0); MEAN CORPUSCULAR HGB CONC 30.2 g/dL (32.0-36.0); MEAN CORPUSCULAR VOLUME 63.4 fL (81.0-99.0); MONOCYTES # (AUTO) 0.3 10^3/uL (0.0-1.0); MONOCYTES % (AUTO) 2.8 %; NEUTROPHILS # (AUTO) 7.7 10^3/uL (1.5-6.6); NEUTROPHILS % (AUTO) 83.6 %; PLT - PLATELET COUNT 248 10^3/uL (130-450); RED BLOOD COUNT 3.91 10^6/uL (4.20-5.40); RED CELL DISTRIBUTION WIDTH 20.9 % (12.0-15.0); WHITE BLOOD COUNT 9.2 x10^3/uL (4.8-10.8)
[2024-03-11 16:58] LABS: PLATELET ESTIMATE, MANUAL NORMAL (130-450,000) (NORMAL); PLATELET MORPHOLOGY NORMAL APPEARANCE (NORMAL); SLIDE REVIEW? Indicated
== END 2024-03-11 16:05 | disposition home or self-care (01) ==
LOC: LAB 16:04
PROVIDERS: ATTEND Nurse Practitioner
DX: D50.9 Iron deficiency anemia, unspecified (principal)
CPT/HCPCS: 36415; 85025

== ENCOUNTER 2024-03-12 15:54 | Outpatient (CLI) | payer MEDICAID ==
[2024-03-12 16:40] LABS: ALBUMIN 4.1 g/dL (3.2-5.5); ALBUMIN/GLOBULIN RATIO 1.3 (1.0-2.2); BILIRUBIN,TOTAL 0.5 mg/dL (0.2-1.0); CALCIUM 9.4 mg/dL (8.5-10.3); CREATININE 0.5 mg/dL (0.6-1.3); CRP - C-REACTIVE PROTEIN 7.9 mg/dL (<0.5); POTASSIUM 4.1 mmol/L (3.5-4.5); TOTAL PROTEIN 7.3 g/dL (6.4-8.9)
== END 2024-03-12 15:55 | disposition home or self-care (01) ==
LOC: LAB 15:54
PROVIDERS: ATTEND Nurse Practitioner
DX: D64.9 Anemia, unspecified (principal); R59.1 Generalized enlarged lymph nodes
CPT/HCPCS: 36415; 80053; 83010; 85025; 86140